=== PATIENT | female | born 1950 | race Caucasian/White ===

== ENCOUNTER 2017-12-05 12:56 | Inpatient (IN) | payer MEDICARE ==
[~2017-12-05] VITALS: Ht 157.5 cm; Wt 83.0 kg
[~2017-12-05 12:56] MED LIST: ADULT LOW DOSE81 MG PO; ALTACE10 M1 PO; AMLODIPINE BESY10 MG PO; AZITHROMYCIN 2250 MG PO; CELLCEPT 250 M250 MG PO; FOSAMAX; HYDROXYCHLOROQ200 M1 PO; IRON325 PO; LEVAQUIN 500 M500 M2 PO; LISINOPRIL10 MG PO; METHOTREXATE; NABUMETONE 500500 M1 PO; PREDNISONE 10 M10 MG PO; PREDNISONE 2.52.5 M1 PO; PROTONIX 20 MG20 M1 PO; TESSALON PERLE100 MG PO; TUMS PO; UNICOMPLEX M TA1 TA1 PO; VITAMIN D3400 UNIT PO; ZOLOFT PO; ZOLOFT50 MG PO
[2017-12-05 13:03] VITALS: BP 149/77
[2017-12-05] MEDS ORDERED: DOXYCYCLINE 10100 MG PO (13:09)
[2017-12-05] MEDS ORDERED: WELLBUTRIN 100100 MG PO (13:09)
[2017-12-05] MEDS ORDERED: RESTASIS1 EACH OPHTHALMIC (13:11)
[2017-12-05 13:20] LABS: ABSOLUTE BASOPHILS 0.1 thou/uL (0.0-0.2); ABSOLUTE EOSINOPHILS 0.1 thou/uL (0.0-0.7); ABSOLUTE LYMPHOCYTES 3.2 thou/uL (0.8-5.3); ABSOLUTE MONOCYTES 1.4 thou/uL (0.0-1.2); ABSOLUTE NEUTROPHILS 7.7 thou/uL (1.6-8.1); BASOPHILS 1.2 %; EOSINOPHILS 0.6 %; HEMATOCRIT 43.4 % (37.0-47.0); HEMOGLOBIN 14.2 gm/dL (12.0-15.0); LYMPHOCYTES 25.4 %; MCH 29.8 pg (26.0-34.0); MCHC 32.7 g/dL (28.0-37.0); MCV 91.2 fL (80.0-100.0); MONOCYTES 11.4 %; MPV 7.6 fl. (7.2-11.1); NUCLEATED RBCS 0 /100WBC; PLATELET COUNT* 412 thou/uL (150-400); POLYS 61.4 %; RBC 4.76 mil/uL (4.20-5.00); RDW-CV 14.5 % (10.5-14.5); WBC 12.5 thou/uL (4.0-11.0)
[2017-12-05 13:31] LABS: ANION GAP 7 mmol/L (7-16); BUN 15 mg/dL (7-18); CALCIUM 9.9 mg/dL (8.5-10.1); CHLORIDE 102 mmol/L (98-107); CO2 27 mmol/L (21-32); CREATININE 0.8 mg/dL (0.6-1.3); GLUCOSE 111 mg/dL (70-99); POTASSIUM 4.4 mmol/L (3.5-5.1); SODIUM 136 mmol/L (136-145)
[2017-12-05 13:33] LABS: APTT 25.9 Seconds (25.0-31.3); PROTIME 10.2 Seconds (9.20-11.50)
[2017-12-05 13:50] LABS: ALBUMIN 3.9 g/dL (3.4-5.0); ALKALINE PHOSPHATASE 55 U/L (46-116); CK-MB MASS 1.9 ng/mL (<0.5-3.6); LIPASE 169 U/L (73-393); MAGNESIUM 1.9 mg/dL (1.8-2.4); NT-PRO BRAIN NAT PEPTIDE 137 pg/mL (<300); SGOT 21 U/L (15-37); SGPT 22 U/L (30-65); TOTAL BILIRUBIN 0.4 mg/dL (<0.1-1.0); TOTAL PROTEIN 7.4 g/dL (6.4-8.2); TROPONIN-I LEVEL <0.06 ng/mL (<0.06)
[2017-12-05 14:44] VITALS: BP 131/68
[2017-12-05 14:47] VITALS: BP 119/67
--- NOTE | 2017-12-05 14:56 | EKG ---
[place] [address] ELECTROCARDIOGRAM REPORT Name: FRANKLYNSIMONE Room: [address] ADM IN M.R.#: [id number] Admission: 12/05/17 Attend Phys: Kit Carrizales MD Discharge: Date of : 50 Report #: [id number] THIS REPORT FOR: //name// [facility] ED Test Date: 2017-12-05 Test Time: 13:04:12 Pat Name: SIMONE ESTES Department: Room: [facility] Gender: F Dyno Technician: : 1950 Requested By: Heath Zuleta Order Number: [id number] MD: Wilfrido Carrillo Measurements Intervals [place] Rate: 95 P: 56 CT: 139 QRS: 70 QRSD: 89 T: 72 QT: 331 QTc: 416 Interpretive Statements Sinus rhythm Probable left atrial enlargement Compared to ECG 07/28/2017 21:14:57 Sinus tachycardia no longer present Electronically Signed On 12-05-2017 14:55:57 CDT by Wilfrido Carrillo [email or web address] <ELECTRONICALLY SIGNED> By: Wilfrido Carrillo MD, [facility] 12/05/17 1455 1304 1304 Wilfrido Carrillo MD, FAC /EPI
--- NOTE | 2017-12-05 18:36 | NUR ---
PATIENT ADMITTED TO ROOM 304 THIS AFTERNOON. ALERT AND ORIENTED X 4. NO COMPLAINTS OF PAIN. IV SL, SCHED ABX INFUSED. PULMOMNARY CONSULTED, PATIENT STATES SHE NORMALLY SEES DR. MCNEAL AT . NO SKIN BREAKDOWN NOTED. REFUSED SCD'S. [address], PATIENT STATES SHE WEARS THIS AMOUNT AT HOME AND USES 8L NC WITH ACTIVITY. REG DIET. ORIENTED TO CALL LIGHT. CALL LIGHT WITHIN REACH, WILL CONTINUE TO MONITOR.
[2017-12-06] VITALS: BP 122/72
--- NOTE | 2017-12-06 04:27 | NUR ---
PATIENT SLEPT WELL DURING THIS SHIFT. PT DENIES PAIN. PT VOIDING DARK PINK URINE. URINE STRAINED; NO STONES BUT URINE HAS BLOOD CLOTS. PT UP AD HERNÁN IN ROOM. FLUIDS INFUSING PER DR ORDER. PT DENIES NEEDS AT THIS TIME. FREQUENTLY USED ITEMS AND CALL LIGHT WITHIN REACH. SIDERAILS UPX2. WILL CONTINUE TO MONITOR.
--- NOTE | 2017-12-06 04:36 | NUR ---
PATIENT SLEPT WELL DURING THIS SHIFT. PT DENIES PAIN ON THIS SHIFT. PT USES CALL LIGHT APPROPRIATELY FOR ASSISTANCE TO THE BATHROOM. PT VOIDS YELLOW URINE. PT WITH SALINE LOCK IN RT FOREARM. PT IS ON O2 @ 4LITERS WITH LONG TUBING. PT WITH DIMINISHED LUNG SOUNDS. PT DENIES NEEDS AT THIS TIME. FREQUENTLY USED ITEMS AND CALL LIGHT WITHIN REACH. SIDERAILS UPX2 AND BED ALARM ON. WILL CONTINUE TO MONITOR.
[2017-12-06 04:44] LABS: ABSOLUTE LYMPHOCYTES 1.8 thou/uL (0.8-5.3); ABSOLUTE MONOCYTES 1.9 thou/uL (0.0-1.2); ABSOLUTE NEUTROPHILS 9.4 thou/uL (1.6-8.1); BASOPHILS 0.3 %; HEMATOCRIT 40.8 % (37.0-47.0); HEMOGLOBIN 12.9 gm/dL (12.0-15.0); LYMPHOCYTES 13.4 %; MCH 29.1 pg (26.0-34.0); MCHC 31.5 g/dL (28.0-37.0); MCV 92.4 fL (80.0-100.0); MONOCYTES 14.3 %; NUCLEATED RBCS 0 /100WBC; PLATELET COUNT* 401 thou/uL (150-400); RBC 4.42 mil/uL (4.20-5.00); RDW-CV 14.2 % (10.5-14.5); WBC 13.1 thou/uL (4.0-11.0)
[2017-12-06 05:08] LABS: CALCIUM 8.9 mg/dL (8.5-10.1); CREATININE 0.8 mg/dL (0.6-1.3); POTASSIUM 4.8 mmol/L (3.5-5.1)
[2017-12-06 07:20] VITALS: BP 143/66
--- NOTE | 2017-12-06 11:46 | NUR ---
SW met with pt to complete initial assessment, introduce self, and SW role. Pt alert, oriented, pleasant. Pt lives at home with her significant other and dtr. Pt says she has good family support. Pt is fairly independent at home. Pt has home oxygen through [facility] and has since Oct 2014. Pt does not have any other DME or hx of HH or SNF. Pt does not anticipate any dc needs at this time. SW to continue to follow.
[2017-12-06 16:12] VITALS: BP 114/59
--- NOTE | 2017-12-06 16:19 | NUR ---
NO COMPLAINTS OF PAIN. PATIENT UP AND AMBULATING AROUND ROOM AND TO BATHROOM WITH ASSISTANCE, NO DIFFICULTY NOTED. 02 REMAINS AT 4L NC. IV REMAINS SL, WITH SCHED ABX AND STEROIDS. POSSIBLE DISCHARGE OVER THE WEEKEND. CXR IN AM. RVP PENDING.
[2017-12-07] VITALS: BP 130/66
--- NOTE | 2017-12-07 05:40 | NUR ---
PATIENT SLEPT WELL DURING THIS SHIFT. PT UP TO BATHROOM WITH STEADY GAIT. PT WEARS O2 @ 4 LITERS PER NASAL CANNULA. PT DENIES PAIN/NAUSEA. PT WITH SALINE LOCK IN RT FOREARM. PT SAYS SHE FEELS A LITTLE BETTER THIS MORNING. PT DENIES NEEDS AT THIS TIME. FREQUENTLY USED ITEMS AND CALL LIGHT WITHIN REACH. SIDERAILS UPX2. WILL CONTINUE TO MONITOR/
[2017-12-07 08:00] VITALS: BP 144/67
--- NOTE | 2017-12-07 08:00 | CON ---
[address] [address] CONSULTATION Name: FRANKLYNSIMONE Yary Room: [address] IN M.R.#: [id number] Admission: 12/05/17 Attend Phys: Kit Carrizales MD Discharge: Date of : 50 Report #: [id number] THIS REPORT FOR: //name// CC: [facility] Phys[facility] staff DATE OF SERVICE: 12/06/2017 REQUESTING PHYSICIAN: Kit Carrizales M.D. REASON FOR CONSULTATION: History of interstitial lung disease, now with possible respiratory tract infection. DISCUSSION: The patient is a 67-year-old woman who has a history of underlying rheumatoid arthritis and interstitial lung disease related to that. She follows with rheumatology and pulmonary at [facility]. She has not felt well for the last couple of weeks. Did have a round of antibiotics. Was continuing to have issues. She was much more short of breath than what she is normally. She is on O2 at home, it can up to 7-8 liters as needed. However, she notes even in a relatively small home, she was getting much more dyspneic relative to what she had been. She has not been around anyone who is ill as far she knows. However, she is on immunosuppressive therapy for her RA and ILD. She is a former smoker quitting [address] Ashby has tried various inhalers in the past none of which did offer any benefit. She does note recent pulmonary function studies essentially were stable compared with they had been in the past. I do not have any of that information here. She is followed at . She has never been intubated in the past. She has had other hospitalizations, primarily at . She was hospitalized here this past spring as well. She has been in the ICU at one point, was on BiPAP, but has never been intubated. She also has a history of obstructive sleep apnea. She does have a CPAP machine. However, she forgot to bring it to the hospital with her. She has no idea how severe her sleep apnea is. She has no history of tuberculosis or thromboembolic disease. She is immunocompromised as noted. She states she has also been told that her immunoglobulin levels are low. There is some consideration of starting IVIG in the future as well. At baseline, she does do rituximab infusions at . She is due for one, I believe next week. She chronically does prednisone 10 mg a day, CellCept, hydroxychloroquine. She also has a history of some reflux and takes medications chronically [place] [address] CONSULTATION Name: SIMONE ESTES Room: [address] IN [facility].#: [id number] Admission: 12/05/17 Attend Phys: Kit Carrizales MD Discharge: Date of : 50 Report #: [id number] PAST MEDICAL HISTORY: Remarkable for the rheumatoid arthritis and interstitial lung disease as noted. She has never had a lung biopsy. Her physicians do believe the fibrosis is related to the RA. She also has a history of GERD, osteoporosis, depression. She has had a prior tubal ligation. Has a known heart murmur as well, but was not thought to be serious. SOCIAL HISTORY: Former smoker as noted. Approximately [id number]-apbf smoking history. 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 No smokers at home. FAMILY HISTORY: Positive for cancer, also for strokes. REVIEW OF SYSTEMS: ROS was done. Note positives above. She denies any difficulty swallowing. She has had some nausea, but no actual vomiting. Stools have been a little loose. She is having more reflux symptoms here in the hospital. She is normally on omeprazole at home, now her prescription had run out and had not yet been refilled. She does tend toward some mild lower extremity edema. Some prominent veins on the left side for which she wears support hose, which she has done on her own. At times, she has been extremely weak here recently. She feels lightheaded, but has not had any syncopal episodes. At times, may feel either hot or cold. PHYSICAL EXAMINATION: GENERAL APPEARANCE: A woman who does look chronically ill. She has O2 running via nasal cannula. However, she is alert, able to speak in full sentences. She is a fairly good historian. She does look somewhat cushingoid. HEENT: Head is normocephalic. Sclerae nonicteric. Mucous membranes are a little dry. NECK: Without adenopathy. No JVD is noted. HEART: Regular, mildly tachycardic. She has a grade 2/6 systolic murmur heard. No S3 is heard. LUNGS: Reveal breath sounds to be just minimally decreased overall. She has a few bibasilar crackles that are heard primarily late inspiration. No dullness to percussion. No E to A changes. Excursion is equal. No CVA tenderness. ABDOMEN: Mildly obese, but soft. No clubbing. She does have some arthritic changes of her hands, but none of the joints appeared overly red or inflamed. Radial pulses are present. EXTREMITIES: Lower extremities do have support stockings and they were not removed. Does not appear to have significant edema given the limitations with that. NEUROLOGIC: She is alert and oriented x 3. LABORATORY AND X-RAY FINDINGS: X-ray was reviewed. She does have interstitial changes noted bilaterally. Overall, findings are similar to what they were in the spring of this year. May be a bit more prominent in the left [place] [address] CONSULTATION Name: FRANKLYNSIMONE Room: [address] IN [facility]#: [id number] Admission: 12/05/17 Attend Phys: Kit Carrizales MD Discharge: Date of : 50 Report #: [id number] difficult to know if it is an early infiltrate or atelectatic changes seen. Does not appear to have any significant pleural effusions. On her chemistry, her BUN is 19, creatinine of 0.8, potassium is 4.8. LFTs unremarkable. ProBNP was 137. Coag studies unremarkable. White blood cell count 13,100, hemoglobin 12.9, hematocrit 40.8, platelets 401,000. Blood cultures have been sent, no growth at 24 hours. IMPRESSION: 1. Lower respiratory tract infection, may be viral. No confluent infiltrates noted on x-ray. However, since she is immunocompromised, bronchitis, even viral infection could certainly be quite serious. 2. Chronic respiratory failure. She is on chronic home O2. O2 needs were from 4-8 liters per nasal cannula. 3. History of rheumatoid arthritis with associated interstitial lung disease, on immunosuppressive therapy. 4. Prior smoker, by history, probably does not have significant obstructive lung disease. 5. Sleep apnea, on CPAP at home. RECOMMENDATIONS: 1. O2 is needed. Agree with IV steroids and resume her baseline dose of prednisone 10 mg a day. 2. Agree with antibiotics. 3. We will follow up x-ray tomorrow. We will get a PA and lateral study. Also, nasal swab for influenza and respiratory viral panel. 4. Hopefully, she will have additional improvement, and she can be discharged in several days. 5. We will also start omeprazole for her gastroesophageal reflux disease. <ELECTRONICALLY SIGNED> By: Moon Noriega MD 12/07/17 0800 1059 0048Moon Noriega MD /nt
[2017-12-07 15:30] VITALS: BP 114/64
--- NOTE | 2017-12-07 16:05 | NUR ---
SHIFT NOTE - PT OFF FLOOR THIS AM FOR CXR. PT UP WITH STANDBY IN ROOM WITH O2. IV INFILTRATED AND REPLACED. WILL CONTINE TO MONITOR.
[2017-12-07 19:15] VITALS: BP 136/70
--- NOTE | 2017-12-08 03:00 | NUR ---
ASSUMED CARE OF PT AT 1900. PT IS ALERT AND ORIENTED. VSS. PERRLA. NO COMPLAINTS OF PAIN. PT IS ON 4 LITERS O2. PT IS SLEEPING QUIETLY IN BED. RESPIRATIONS ARE EVEN AND NONLABORED. WILL CONTINUE TO MONITOR PT.
[2017-12-08 07:55] VITALS: BP 124/70
[2017-12-08] MEDS ORDERED: LEVAQUIN 750 M750 MG PO (11:04)
[2017-12-08 11:07] VITALS: BP 124/70
--- NOTE | 2017-12-08 11:59 | NUR ---
PATIENT A&OX4, 4L O2 NC DOES WERE O2 AT HOME. IV LEFT WRIST SALINE LOCK, WITH IV ABX. UP AD HERNÁN, STEADY GAIT. NO C/O PAIN/N/V. DISCHARGED TODAY. IV DISCONTINUED AFTER DAILY ABX GIVEN, CATHETER FULLY INTACT. REVIEWED DISCHARGE PAPERWORK, ALL QUESTIONS AND CONCERNS ANSWERED. PATIENT LEFT UNIT AT 1140 VIA W/C WITH CHILD. LEFT WATER RESOURCE ENGINEERING SPECIALIST IN ROOM, CALLED AND LEFT MESSAGE. ALL OTHER BELONGINGS TAKEN WITH PATIENT. APPROPRAITE AND COOPORATIVE WITH CARE.
[2017-12-10 03:09] LABS: ADENOVIRUS Negative (Negative); INFLUENZA A Negative (Negative); INFLUENZA B Negative (Negative); METAPNEUMOVIRUS Negative (Negative); PARAINFLUENZA 1 Negative (Negative); PARAINFLUENZA 2 Negative (Negative); PARAINFLUENZA 3 Negative (Negative); RHINOVIRUS Negative (Negative); RSV A Negative (Negative); RSV B Negative (Negative)
== END 2017-12-08 11:40 | disposition home or self-care (01) | DRG 177 ==
LOC: M.ERS 12:56 → M.TBA-ER 13:53 → M.3W 13:53
PROVIDERS: Family Medicine; Internal Medicine Pulmonary Disease; ADMIT Internal Medicine
DX: J15.6 Pneumonia due to other Gram-negative bacteria (principal); J96.20 Acute and chronic respiratory failure, unspecified whether with hypoxia or hypercapnia; R65.11 Systemic inflammatory response syndrome (SIRS) of non-infectious origin with acute organ dysfunction; J44.1 Chronic obstructive pulmonary disease with (acute) exacerbation; J44.0 Chronic obstructive pulmonary disease with (acute) lower respiratory infection; M06.9 Rheumatoid arthritis, unspecified; M81.0 Age-related osteoporosis without current pathological fracture; J22 Unspecified acute lower respiratory infection; J84.10 Pulmonary fibrosis, unspecified; E66.01 Morbid (severe) obesity due to excess calories; F32.9 Major depressive disorder, single episode, unspecified; I10 Essential (primary) hypertension; Z88.8 Allergy status to other drugs, medicaments and biological substances; Z88.2 Allergy status to sulfonamides; Z87.891 Personal history of nicotine dependence; Z82.3 Family history of stroke; Z68.33 Body mass index [BMI] 33.0-33.9, adult; Z79.52 Long term (current) use of systemic steroids; Z99.81 Dependence on supplemental oxygen; Z79.899 Other long term (current) drug therapy

== ENCOUNTER 2018-02-05 20:37 | Inpatient (IN) | payer MEDICARE, OTHER, MEDICAID ==
[~2018-02-05] VITALS: Ht 157.5 cm; Wt 85.7 kg
[~2018-02-05 20:37] MED LIST changes: +DOXYCYCLINE 10100 MG PO; +LEVAQUIN 750 M750 MG PO; +RESTASIS1 EACH OPHTHALMIC; +WELLBUTRIN 100100 MG PO
[2018-02-05 20:38] VITALS: BP 162/69
[2018-02-05] MEDS ORDERED: PROTONIX40 M1 PO (20:49)
[2018-02-05 21:17] LABS: BE 0.5 mmol/L (-2 to +3); HCO3 24.5 mmol/L (22.0-26.0); PCO2 37.4 mmHg (35.0-45.0); PO2 91.8 mmHg (75.0-100.0); pH 7.434 (7.340-7.450)
[2018-02-05 21:43] LABS: ABSOLUTE BASOPHILS 0.2 thou/uL (0.0-0.2); ABSOLUTE EOSINOPHILS 0.3 thou/uL (0.0-0.7); ABSOLUTE LYMPHOCYTES 2.7 thou/uL (0.8-5.3); ABSOLUTE MONOCYTES 1.9 thou/uL (0.0-1.2); ABSOLUTE NEUTROPHILS 8.9 thou/uL (1.6-8.1); BASOPHILS 1.2 %; EOSINOPHILS 1.8 %; HEMATOCRIT 36.7 % (37.0-47.0); HEMOGLOBIN 11.7 gm/dL (12.0-15.0); LYMPHOCYTES 19.5 %; MCH 29.7 pg (26.0-34.0); MCHC 31.9 g/dL (28.0-37.0); MONOCYTES 13.9 %; MPV 7.5 fl. (7.2-11.1); NUCLEATED RBCS 0 /100WBC; PLATELET COUNT* 395 thou/uL (150-400); POLYS 63.6 %; RBC 3.95 mil/uL (4.20-5.00); RDW-CV 14.6 % (10.5-14.5)
[2018-02-05 21:52] LABS: CALCIUM 8.6 mg/dL (8.5-10.1); CREATININE 0.7 mg/dL (0.6-1.3); POTASSIUM 3.6 mmol/L (3.5-5.1)
[2018-02-05 21:53] LABS: APTT 26.3 Seconds (25.0-31.3); PROTIME 10.1 Seconds (9.20-11.50)
[2018-02-05 22:03] LABS: ALBUMIN 2.9 g/dL (3.4-5.0); MAGNESIUM 1.9 mg/dL (1.8-2.4); TOTAL BILIRUBIN 0.1 mg/dL (<0.1-1.0)
[2018-02-05 22:08] LABS: URINE BILIRUBIN NEGATIVE (Negative); URINE BLOOD NEGATIVE (Negative); URINE CLARITY CLEAR; URINE COLOR YELLOW; URINE GLUCOSE-RANDOM NEGATIVE (Negative); URINE KETONES NEGATIVE (Negative); URINE NITRITE-REFLEX NEGATIVE (Negative); URINE PROTEIN NEGATIVE (Negative); URINE SPECIFIC GRAVITY >= 1.030 (1.005-1.030); URINE UROBILINOGEN 0.2 E.U./dl (0.2-1.0)
[2018-02-05 22:09] LABS: URINE LEUKOCYTES-REFLEX 2+ (Negative)
[2018-02-05 22:26] LABS: BACTERIA-REFLEX 1-9 Few /HPF (None Seen); CASTS None Seen /LPF (None Seen); SQUAMOUS 0-3 Few /LPF (0-3); URINE RBC 0-2 Rare /HPF (0-2); URINE WBC-REFLEX 0-5 Rare /HPF (0-5)
[2018-02-05 22:27] LABS: CRYSTALS None Seen /LPF (None Seen); RENAL EPITHELIAL CELLS 4-10 Moderate /LPF (None Seen)
[2018-02-05 22:35] VITALS: BP 162/69
[2018-02-05 23:00] VITALS: BP 129/63
[2018-02-06 04:00] VITALS: BP 143/64
[2018-02-06 05:15] LABS: HEMATOCRIT 33.4 % (37.0-47.0); MCH 30.6 pg (26.0-34.0); MCV 92.7 fL (80.0-100.0); MPV 7.8 fl. (7.2-11.1); RBC 3.61 mil/uL (4.20-5.00); RDW-CV 14.2 % (10.5-14.5); WBC 13.2 thou/uL (4.0-11.0)
[2018-02-06 05:36] LABS: ALBUMIN 2.6 g/dL (3.4-5.0); CALCIUM 8.4 mg/dL (8.5-10.1); CREATININE 0.7 mg/dL (0.6-1.3); MAGNESIUM 1.9 mg/dL (1.8-2.4); POTASSIUM 3.9 mmol/L (3.5-5.1); TOTAL BILIRUBIN 0.1 mg/dL (<0.1-1.0); TOTAL PROTEIN 5.4 g/dL (6.4-8.2)
[2018-02-06 08:02] VITALS: BP 111/50
[2018-02-06 10:21] LABS: INFLUENZA A ANTIGEN None Detected (None Detect); INFLUENZA B ANTIGEN None Detected (None Detect)
[2018-02-06 11:30] VITALS: BP 112/58
[2018-02-06 16:00] VITALS: BP 112/66
--- NOTE | 2018-02-06 18:05 | EKG ---
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
[2018-02-06 20:00] VITALS: BP 131/67
[2018-02-07] VITALS: BP 150/70
[2018-02-07 04:00] VITALS: BP 125/62
[2018-02-07 05:12] LABS: HEMATOCRIT 33.3 % (37.0-47.0); HEMOGLOBIN 10.9 gm/dL (12.0-15.0); MCH 30.5 pg (26.0-34.0); MCHC 32.8 g/dL (28.0-37.0); MCV 92.9 fL (80.0-100.0); MPV 7.4 fl. (7.2-11.1); RBC 3.59 mil/uL (4.20-5.00); WBC 13.4 thou/uL (4.0-11.0)
[2018-02-07 05:19] LABS: CALCIUM 8.1 mg/dL (8.5-10.1); CREATININE 0.7 mg/dL (0.6-1.3); POTASSIUM 3.8 mmol/L (3.5-5.1)
--- NOTE | 2018-02-07 07:25 | CON ---
[address] [address] CONSULTATION Name: SIMONE ESTES Room: [address] IN M.R.#: [id number] Admission: 02/05/18 Attend Phys: Ciara Calderon MD Discharge: Date of : 50 Report #: [id number] THIS REPORT FOR: //name// CC: FAM physician/PCP Ciara Calderon DATE OF SERVICE: 02/06/2018 REFERRING PHYSICIAN: Ciara Calderon MD CHIEF COMPLAINT: Shortness of breath. HISTORY OF PRESENT ILLNESS: The patient is a 68-year-old female who quit smoking approximately 3 years ago, consuming 1 pack per day for approximately 45+ years. She does have a history of chronic obstructive airways disease, but more importantly she has interstitial lung disease associated with pulmonary fibrosis secondary to her rheumatoid arthritis most likely. The patient gives a history stating that she has been seen and evaluated at the [facility] at [facility] under the guidance of Dr. Ashby. She has been treated with a variety of different medications and appears to be more recently on Rituxan, which she receives four infusions once a year. Her regimen is such that she gets an infusion one day and then a week later another infusion and then this is repeated 6 months later. In addition, she is on CellCept. She is on prednisone therapy about 5-10 mg a day. She is on Plaquenil for her rheumatoid arthritis. In addition, she uses amlodipine, Wellbutrin, she is on Tessalon Perles on a p.r.n. basis for cough. She is on lisinopril, Protonix. PAST MEDICAL HISTORY: Significant for the above along with rheumatoid arthritis/lupus, reflux disorder. FAMILY HISTORY: Positive for congestive failure, leukemia, lung cancer. SOCIAL HISTORY: She is a prior smoker. She lives with her "significant other." REVIEW OF SYSTEMS: Systems review negative other than what is outlined above. The patient does have exertional dyspnea. She monitors her O2 saturations and normally she is on 4 liters prior to October of this year around as mentioned as of October, she began to experience more shortness of breath. She monitors her O2 saturation. Normally she has been able to maintain saturations above 95%. Since October her saturations dropped to the low 80s, mid 70s with exertion and it has actually gotten worse. In addition, she has had low-grade temps off and on. She has had sweats and chills. She has had a cough, but no [place] [address] CONSULTATION Name: SIMONE ESTES Room: [address] IN [facility]#: [id number] Admission: 02/05/18 Attend Phys: Ciara Calderon MD Discharge: Date of : 50 Report #: [id number] PHYSICAL EXAMINATION: VITAL SIGNS: Blood pressure 112/58, respiratory rate 17, pulse rate 88, temperature 98.2. Her weight is 189 pounds. On 6 liters, her O2 saturation is 97%. Her temperature today is 98.6. GENERAL APPEARANCE: The patient is awake, alert, oriented. HEAD: Atraumatic. EYES: Pupils are round, equal, reactive. Sclerae and conjunctivae are clear. ORAL CAVITY: Moist. NECK: No adenopathy. CHEST: Reveals a few faint scattered end expiratory crackles. No wheezes or rhonchi. Breath sounds are diminished. CARDIOVASCULAR: Regular rhythm. She does have a very soft 2/6 systolic murmur and she is aware of this. ABDOMEN: Slightly obese. There is no tenderness, no guarding. EXTREMITIES: Negative for edema. No evidence of clubbing. NEUROLOGIC: She moves all 4 extremities. SKIN: Normal. No rash effect or lesions. DIAGNOSTIC DATA: Chest x-ray reveals interstitial changes. CT exam of the chest performed on 07/27/2017 reveals diffuse honeycombing and scattered ground glass opacities with emphysematous changes as well. There was no evidence of adenopathy on that particular study. Severe pulmonary fibrosis was felt to be present as well. LABORATORY DATA: Arterial blood gas obtained on admission, pH 7.43, pCO2 of 37, pO2 of 92, bicarbonate 25 while on 6 liters nasal cannula. Respiratory viral panel in 11/2017 was negative. Influenza A/B antigen study was negative on this admission. Today, her hemoglobin and hematocrit are 11 and 33 with a white count of 13,000. Electrolytes reveal sodium 143, potassium 3.9, chloride 108, CO2 of 26, BUN of 12, creatinine 0.7. IMPRESSION: 1. Acute respiratory insufficiency superimposed on chronic respiratory failure of a hypoxemic nature. 2. End-stage lung disease with pulmonary fibrosis. 3. History of rheumatoid arthritis with an overlap of lupus according to the patient. 4. History of gastroesophageal reflux disorder. RECOMMENDATIONS: The patient has been on maximal therapy for her fibrotic condition under the guidance of Dr. Ashby at [facility]. I am not sure that I have anything else to offer at this point other than aerosol treatments and bump up her steroids some. It does not appear to be infected at this time, there are no acute infiltrates. I do think that a repeat CT of the chest with high resolution sections to [address] [address] CONSULTATION Name: SIMONE ESTES Room: [address] IN [facility].#: [id number] Admission: 02/05/18 Attend Phys: Ciara Calderon MD Discharge: Date of : 50 Report #: [id number] determine whether there has been ongoing progression of her disease process. In the event that a 2D echo has not been performed, suggest that we ought to go ahead and check that as well. Need to establish whether there is any pulmonary hypertension associated with this condition. <ELECTRONICALLY SIGNED> By: Juan Pablo Portillo MD 02/07/18 0725 1617 [id number] Nava MD /nt
[2018-02-07 08:45] VITALS: BP 158/73
[2018-02-07 11:54] VITALS: BP 130/66
--- NOTE | 2018-02-07 14:28 | 2DMMODE ---
[place] [address] 2 D/M-MODE ECHOCARDIOGRAM Name: SIMONE ESTES Room: [address] IN [facility]#: [id number] Admission: 02/05/18 Attend Phys: Ciara Calderon, Discharge: Date of : 50 Date of Service: 02/07/18 1428 Report #: [id number] THIS REPORT FOR: //name// APPROVED REPORT Study performed: 02/07/2018 09:40:23 EXAM: Comprehensive 2D, Doppler, and color-flow Echocardiogram Patient Location: In-Patient Room #: [facility] Status: routine BSA: 1.87 HR: 86 bpm BP: 158/73 mmHg Rhythm: NSR Other Information Study Quality: Good Indications Pulmonary Hypertension 2D Dimensions IVSd: 10.52 (7-11mm) LVOT Diam: 18.78 (18-24mm) LVDd: 46.25 mm PWd: 9.25 (7-11mm) Ascending Ao: 27.07 (22-36mm) LVDs: 23.22 (25-40mm) Aortic Root: 27.88 mm Volumes Left Atrial Volume (Systole) LA ESV Index: 25.30 mL/m2 Aortic Valve AoV Peak Huang.: 2.43 m/s AO Peak Gr.: 23.66 mmHg LVOT Max P.85 mmHg AO Mean Gr.: 12.43 mmHg LVOT Mean P.20 mmHg LVOT Max V: 1.57 m/s AO V2 VTI: 45.93 cm LVOT Mean V: 1.06 m/s PATRICIA (VTI): 2.02 cm2 LVOT V1 VTI: 33.48 cm Mitral Valve E/A Ratio: 0.85 MV Decel. Time: 229.99 ms MV E Max Huang.: 1.21 m/[place] [address] 2 D/M-MODE ECHOCARDIOGRAM Name: SIMONE ESTES Room: [address] IN [facility].#: [id number] Admission: 02/05/18 Attend Phys: Ciara Calderon, Discharge: Date of : 50 Date of Service: 02/07/18 1428 Report #: [id number] PHT: 66.70 ms MVA (PHT): 3.30 cm2 TDI E/Lateral E': 12.10 E/Medial E': 12.10 Medial E' Huang.: 0.10 m/s Lateral E' Huang.: 0.10 m/s Pulmonary Valve PV Peak Huang.: 1.35 m/s PV Peak Gr.: 7.26 mmHg Tricuspid Valve RAP Estimate: 5.00 mmHg TR Peak Gr.: 36.90 mmHg RVSP: 41.00 mmHg PA Pressure: 41.00 mmHg Left Ventricle The left ventricle is normal size. There is normal LV segmental wall motion. There is normal left ventricular wall thickness. Left ventricular systolic function is normal. The left ventricular ejection fraction is within the normal range. LVEF is 65%. Grade I - abnormal relaxation pattern. Right Ventricle The right ventricle is normal size. The right ventricular systolic function is normal. Atria The left atrium size is normal. The right atrium size is normal. Aortic Valve Mild aortic valve sclerosis. Trace aortic regurgitation. No hemodynamically significant valvular aortic stenosis. Mitral Valve There is mitral annular calcification. Mild mitral regurgitation. No evidence of mitral valve stenosis. Tricuspid Valve The tricuspid valve is normal in structure. Trace tricuspid regurgitation Pulmonic Valve The pulmonary valve is normal in structure. There is no pulmonic valvular [place] [address] 2 D/M-MODE ECHOCARDIOGRAM Name: SIMONE ESTES Yary Room: [address] IN [facility]#: [id number] Admission: 02/05/18 Attend Phys: Ciara Calderon, Discharge: Date of : 50 Date of Service: 02/07/18 1428 Report #: [id number] Great Vessels The aortic root is normal in size. IVC is normal in size and collapses >50% with inspiration. Pericardium There is no pericardial effusion. <Conclusion> The left ventricle is normal size. There is normal left ventricular wall thickness. Left ventricular systolic function is normal. The left ventricular ejection fraction is within the normal range. LVEF is 65%. Grade I - abnormal relaxation pattern. The right ventricle is normal size. The left atrium size is normal. Mild aortic valve sclerosis. Trace aortic regurgitation. No hemodynamically significant valvular aortic stenosis. There is mitral annular calcification. Mild mitral regurgitation. No evidence of mitral valve stenosis. The tricuspid valve is normal in structure. IVC is normal in size and collapses >50% with inspiration. There is normal LV segmental wall motion. <ELECTRONICALLY SIGNED> By: Wilfrido Carrillo MD, FACC 02/07/18 1428 1428 1428 Wilfrido Carrillo MD, FACC /INF
[2018-02-07 20:20] VITALS: BP 135/72
[2018-02-08 04:28] LABS: CALCIUM 8.6 mg/dL (8.5-10.1); CREATININE 0.7 mg/dL (0.6-1.3); MAGNESIUM 2.2 mg/dL (1.8-2.4); POTASSIUM 4.2 mmol/L (3.5-5.1)
[2018-02-08 08:10] VITALS: BP 152/74
[2018-02-08 17:05] VITALS: BP 108/57
[2018-02-08 19:45] VITALS: BP 133/81
[2018-02-09 05:34] LABS: CALCIUM 8.1 mg/dL (8.5-10.1); CREATININE 0.6 mg/dL (0.6-1.3); MAGNESIUM 2.2 mg/dL (1.8-2.4); POTASSIUM 3.8 mmol/L (3.5-5.1)
[2018-02-09 06:30] VITALS: BP 126/72
[2018-02-09 08:05] VITALS: BP 121/63
[2018-02-09] MEDS ORDERED: PREDNISONE 10 M10 MG PO (08:35)
[2018-02-09] MEDS ORDERED: TRAMADOL 50 MG50 MG PO (08:35)
[2018-02-09] MEDS ORDERED: IPRATROPIU0.2 MG/1 M INH (08:35)
[2018-02-09] MEDS ORDERED: CEFDINIR300 MG PO (08:35)
[2018-02-09] MEDS ORDERED: AZITHROMYCIN 2250 MG PO (08:35)
[2018-02-09] MEDS ORDERED: LEVALBUTER1.25 MG/0. INH (08:35)
[2018-02-09] MEDS ORDERED: NEBULIZER MISCELL (08:35)
[2018-02-09 11:29] VITALS: BP 121/63
== END 2018-02-09 13:06 | disposition home or self-care (01) | DRG 871 ==
LOC: M.ERS 20:37 → M.2W 21:48 → M.TBA-ER 21:48 → M.2W 22:19 → M.ORTHSURG 02-07 15:24
PROVIDERS: Internal Medicine; Personal Emergency Response Attendant; ADMIT Internal Medicine
DX: A41.9 Sepsis, unspecified organism (principal); J96.21 Acute and chronic respiratory failure with hypoxia; J15.9 Unspecified bacterial pneumonia; E44.0 Moderate protein-calorie malnutrition; J44.0 Chronic obstructive pulmonary disease with (acute) lower respiratory infection; M06.9 Rheumatoid arthritis, unspecified; M81.0 Age-related osteoporosis without current pathological fracture; J84.10 Pulmonary fibrosis, unspecified; K21.9 Gastro-esophageal reflux disease without esophagitis; F32.9 Major depressive disorder, single episode, unspecified; M32.9 Systemic lupus erythematosus, unspecified; I10 Essential (primary) hypertension; Z88.2 Allergy status to sulfonamides; Z88.8 Allergy status to other drugs, medicaments and biological substances; Z82.49 Family history of ischemic heart disease and other diseases of the circulatory system; Z80.6 Family history of leukemia; Z80.1 Family history of malignant neoplasm of trachea, bronchus and lung; Z87.891 Personal history of nicotine dependence; Z98.42 Cataract extraction status, left eye; Z98.41 Cataract extraction status, right eye; Z68.34 Body mass index [BMI] 34.0-34.9, adult; Z99.81 Dependence on supplemental oxygen; Z79.52 Long term (current) use of systemic steroids; Z79.899 Other long term (current) drug therapy